=== PATIENT | male | born 1990 | race African-American/Black ===

== ENCOUNTER 2021-05-21 12:34 | Emergency (ER) | payer OTHER, SELFPAY ==
--- NOTE | ~2021-05-21 | XR_ITS ---
EXAMINATION: XR HIP, RIGHT CLINICAL INFORMATION: Sports injury. COMPARISON: None TECHNIQUE: AP pelvis and 2 views of the right hip. FINDINGS: AP film of the pelvis does not demonstrate any evidence of acute fracture or diastases. Visualized disc spaces unremarkable. Sacroiliac joints unremarkable. Hip joint spaces are maintained bilaterally. 2 views of the right hip do not demonstrate any evidence of acute fracture or dislocation. Right hip joint space is maintained. No abnormal lytic or sclerotic lesions are identified. XR/XR hip RT w PEL1V IMPRESSION: No bony abnormality of the AP pelvis or right hip identified.
[2021-05-21 14:51] VITALS: BP 121/73; PULSE 40; RESP 16; TEMP 36.6; O2SAT 99; BMI 31.0
--- NOTE | 2021-05-21 16:07 | ED.LOWEXIN ---
HPI - Extremity Injury (Lower) General Chief Complaint: Extremity Injury, Lower Stated Complaint: rt leg pain Time Seen by Provider: 05/21/21 15:27 Source: patient Mode of arrival: ambulatory Limitations: no limitations History of Present Illness MD complaint: hip injury and thigh injury Onset (ago): week(s) (Two weeks ago) Injury: Right: hip and thigh Type of Injury: other (While running) Place: street/outdoors Severity: mild Relieving factors: nothing Exacerbating factors: movement, palpation and other (Running) Context: running Associated symptoms: snap/pop sensation Other symptoms: none Treatments prior to arrival: other (Motrin Tylenol no symptomatic relief) Related Data Previous Rx's Medication Instructions Recorded cyclobenzaprine 10 mg tablet 10 mg PO Q8H #10 tab 05/21/21 ibuprofen 800 mg tablet 800 mg PO Q8H PRN #14 tab 05/21/21 oxycodone-acetaminophen 5 mg-325 1 tab PO Q6H PRN #10 tab 05/21/21 mg tablet (Percocet) Allergies Allergy/AdvReac Type Severity Reaction Status Date / Time No Known Allergies Allergy Verified 05/21/21 14:57 Review of Systems Review of Systems: Constitutional : No changes in activity, No lethargy, No recent prior head injury, No agitation, No increased fussiness ENT/Mouth : No Ear Pain, No Nasal discharge/drainage Eyes: No Eye Pain, No Swelling, No Redness, No Foreign Body, No Vision Changes Cardiovascular : No Chest Pain, No SOB Respiratory : No Cough Gastrointestinal : No Nausea, No Vomiting, No abdominal Pain Genitourinary : No Dysuria, No Urinary Frequency, No Urinary Incontinence, No Urgency, No Flank Pain Musculoskeletal : + joint pain, No neck stiffness, No back pain/injury Skin : No lacerations Neuro : No unsteady gait, No Paresthesias, No Loss of Consciousness, No altered mental status, No Headache Yes all other systems are reviewed and are negative [facility] Past Medical History Attestation statement: The following information was validated with the patient. Medical History H/O fracture of right hip No known health problems Social History Social History Advance Directives: No Advance Directives Information Provided: Yes Physical Exam Vital Signs: Vital Signs: Last Vital Signs Temp 97.9 F 05/21/21 14:51 Pulse 40 L 05/21/21 14:51 Resp 16 05/21/21 14:51 BP 121/73 05/21/21 14:51 Pulse Ox 99 05/21/21 14:51 Body Mass Index 31.0 vital signs have been reviewed as normal and appeared to be correct. Blood pressure normal. Heart rate normal. Respiration rate normal. Temperature normal. Oxygen saturation normal. Appearance: Alert. Oriented X3. No acute distress. Head: Normal external exam. Normocephalic. Atraumatic. Eyes: PERRLA. EOMI. Conjunctiva and sclera normal. Eyelids normal. ENT: Pharynx normal. Uvula midline. Moist mucous membranes. Neck: Normal inspection. Neck supple. FROM. No adenopathy. No meningeal signs. CVS: Normal heart rate and rhythm. Heart sound normal. Pulses normal throughout. No murmurs/rales/gallops. Respiratory: No respiratory distress. Painless inspiration. Breath sounds normal. No wheezes/rales/rhonchi noted. Chest nontender. No accessory muscle usage noted or decreased air movement noted. Back: Full range of motion noted. No rashes/lesion/induration/fluctuance or signs of infection noted. Skin: Skin warm and dry. Normal skin color. Normal skin turgor. No rashes/lesions/lacerations noted. Extremities: Patient with tenderness all patients to right upper thigh at the medial aspect/hip joint no obvious deformities or ligamentous laxity or signs of infection. No muscle rupture noted. No bilateral lower extremity edema or calf tenderness noted. Extremities exhibit normal range of motion. Extremities nontender. Neuro: Oriented X 3. No motor deficit. No sensory deficit. Reflexes normal. Normal steady gait. No focal neuro deficits noted. Vascular: + radial pulses/+ 2 distal pedal pulses/+2 dorsalis pedis b/l. Normal cap refill. No cyanosis noted to upper extremity nails and lower extremity toes nails. Course Course Course Narrative: 31-year-old male presenting to the ED with complaints of right hip/upper thigh pain for the past 2 weeks that have been persistent worse with walking and palpation after he was running while playing sports and he felt up popping sensation and since then has been having pain/cramping sensation. On exam patient has tenderness palpation. No ligamentous laxity. He has a normal steady gait. No muscle rupture noted. No calf tenderness noted. No lower extremity edema noted. X-ray negative for any acute processes. Will DC home with symptomatic treatment instructions to return if any new or worsening symptoms to follow up with primary care provider. Patient understands agrees with this plan. MDM - Extremity Injury (Lower) Medical Records Attestation: I reviewed the patient's medical records. Imaging Data Right hip x-ray: Attestation: I personally reviewed and interpreted this imaging study as follows: Radiologist's impression: FINDINGS: AP film of the pelvis does not demonstrate any evidence of acute fracture or diastases. Visualized disc spaces unremarkable. Sacroiliac joints unremarkable. Hip joint spaces are maintained bilaterally. 2 views of the right hip do not demonstrate any evidence of acute fracture or dislocation. Right hip joint space is maintained. No abnormal lytic or sclerotic lesions are identified.? XR/XR hip RT w PEL1V IMPRESSION: No bony abnormality of the AP pelvis or right hip identified. Discharge Plan Discharge Clinical Impression: Muscle strain of right thigh Patient Disposition: Home, Self-Care Instructions: Muscle Strain (ED), Groin Strain (ED) Additional Instructions: I gave you a few numbers below so you can follow-up with the provider Prescriptions: New cyclobenzaprine 10 mg tablet 10 mg PO Q8H Qty: 10 RF: 0 ibuprofen 800 mg tablet 800 mg PO Q8H PRN (Reason: pain) Qty: 14 RF: 0 oxycodone-acetaminophen [Percocet] 5-325 mg tablet 1 tab PO Q6H PRN (Reason: pain) Qty: 10 RF: 0 Referrals: [facility] [Provider Group] - 2 days [facility] [Provider Group] - 2 days [facility] [place] [facility] [place] [facility] - 2 days Kaleb Herrera MD [Physician] - 2 days Physician[facility] [Primary Care Provider] - 2 days Stand Alone Forms: Work/School Release Print Language: Greek
== END 2021-05-21 16:36 | disposition home or self-care (01) ==
PROVIDERS: Emergency Provider Emergency Medicine
DX: S76.911A Strain of unspecified muscles, fascia and tendons at thigh level, right thigh, initial encounter (principal); M79.651 Pain in right thigh; R00.2 Palpitations; Y93.02 Activity, running; Y92.410 Unspecified street and highway as the place of occurrence of the external cause; Y99.9 Unspecified external cause status; Z79.899 Other long term (current) drug therapy
CPT/HCPCS: 73502; 99283